=== PATIENT | female | born 1965 | race Caucasian/White ===

== ENCOUNTER 2018-03-13 06:27 | Day surgery (SDC) | payer BC ==
[2018-03-13] MEDS ORDERED: Ticagrelor* 90 MG TAB PO ONE ×2 (06:51→06:55)
[2018-03-13] MEDS ORDERED: Aspirin 81 mg CHEW TAB* 81 MG TAB.CHEW PO ONE (06:51)
[2018-03-13] MEDS ORDERED: Heparin for STEMI(*) 5,000 UNITS/ML 1 ML VIAL IV ONE ×2 (06:51→06:53)
[2018-03-13] MEDS ORDERED: Aspirin 81 mg CHEW TAB* 81 MG TAB.CHEW ONE (06:53)
[2018-03-13] MEDS ORDERED: Nitroglycerin TAB 0.4 MG* 0.4 MG TAB ONE (06:53)
[2018-03-13] MEDS ORDERED: Morphine VIAL* 4 MG/ML VIAL (1 ml vial) IV ONE (06:55)
[2018-03-13] MEDS ORDERED: VERAPAMIL 2.5 MG/ML 2 ML VIAL ** 5 mg/2 ml ONE (07:05)
[2018-03-13] MEDS ORDERED: Heparin 2 UNITS/ML IVPREMIX* 3,000 ML IV ONE (07:05)
[2018-03-13] MEDS ORDERED: Lidocaine 1% INJ* 10 MG/ML 30 ML SDV ONE (07:05)
[2018-03-13] MEDS ORDERED: Heparin(*) 1000 UNIT/ML 10 ML VIAL CATH LAB IV ONE (07:05)
[2018-03-13] MEDS ORDERED: nitroGLYCERIN DRIP* 0 MCG/0 ML BTL ONE (07:05)
[2018-03-13] MEDS ORDERED: nitroGLYCERIN DRIP* 25,000 MCG/250 ML BTL ONE ×2 (07:10→07:16)
[2018-03-13] MEDS ORDERED: Iohexol 350 (CONTRAST) 200 ML MDV IV ONE ×2 (07:10→07:16)
[2018-03-13 07:14] LABS: Hematocrit 40 % (35-47); Mean Corpuscular HGB Conc 35 g/dl (31-36); Mean Corpuscular Hemoglobin 30 pg (27-31); Mean Corpuscular Volume 88 fL (80-97); Mean Platelet Volume 7.7 um3 (7.4-10.4); Platelet Count 417 10^3/ul (150-450); Red Blood Count 4.61 10^6/ul (4.00-5.40); Red Cell Distribution Width 13 % (10.5-15); White Blood Count 8.6 10^3/ul (3.5-10.8)
[2018-03-13 07:15] LABS: INR 0.79 (0.77-1.02)
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
[2018-03-13 07:24] LABS: EGFR Non-African American 85.4 (>60)
[2018-03-13] MEDS ORDERED: Heparin DRIP 25,000 UNITS(*) 25,000 UNITS/500 ML BAG ONE (07:35)
[2018-03-13 07:39] LABS: ABS Basophils 0.1 10^3/ul (0-0.2); ABS Eosinophils 0.3 10^3/ul (0-0.6); ABS Lymphocytes 1.9 10^3/ul (1.0-4.8); ABS Monocytes 0.6 10^3/ul (0-0.8); ABS Neutrophils 5.5 10^3/ul (1.5-7.7); ABS Nucleated RBC 0 10^3/ul; Lymphocyte % 23.2 % (25-47); Nucleated Red Blood Cells % 0
[2018-03-13] MEDS ORDERED: Heparin 2 UNITS/ML IVPREMIX* 1,000 ML IV ONE (08:08)
[2018-03-13] MEDS ORDERED: Metoprolol Tartrate IV* 1 MG/ML 5 ML VIAL ONE ×2 (08:14→09:10)
[2018-03-13] MEDS ORDERED: Insulin REGULAR(*) 1 UNITS UNIT IV PUSH ONE (08:39)
[2018-03-13] MEDS ORDERED: Insulin GLARGINE(*) 1 UNITS UNIT SUBCUT ONE (08:42)
--- NOTE | 2018-03-13 09:00 | PN ---
Hospitalist Progress Note Date of Service: 03/13/18 . Hospitalist Consult. Asked for dosing guidance for insulin in setting of hyperglycemia (530) amidst a STEMI. s/p cath with occlusions not amenable to PCI intervention (as per Dr. Tracy) Plan is to transfer to [facility] for cardiac surgery (bypass). In terms of the focal issue of her hyperglycemia -- I understand she does not routinely take insulin agents; she is a known non-compliant diabetic. For acute management during transfer: 1. Regular insulin 10 units IV once, now (STAT) 2. Concurrently, 15 units Lantus SQ once, now (STAT) 3. Recheck FS Q1 hour --> recommend consideration for insulin drip for perioperative management when she arrives to [facility]. 4. I will add on A1C; I don't have a sense of her typical/baseline glucose level. I will remain available until she departs for [place]...
[2018-03-13 13:10] VITALS: BP 0/0
--- NOTE | 2018-03-13 16:06 | CONS ---
CC: Rolando Garcia MD; Dr. Carl Adhikari MD, [facility], [facility] * EMERGENCY ROOM CONSULTATION REPORT/TRANSFER SUMMARY: DATE OF CONSULT: 03/13/18 REASON FOR CONSULT: The patient with acute ST segment elevation, inferior wall myocardial infarction. HISTORY OF PRESENT ILLNESS: The patient is a 52-year-old female who has a history of significant risk factors for underlying coronary artery disease including insulin-requiring diabetes, obesity, hyperlipidemia, possible hypertension, prior history of smoking, although she stopped within the past 2 years, but no significant family history. The patient was in her usual state of health and at 4:00 in the morning developed the onset of significant chest discomfort that radiated to her left shoulder, also to her back, also to her left arm. It was associated with mild shortness of breath. No profound diaphoresis or nausea or vomiting. She sat on this for several hours and eventually decided it was not getting better, if anything getting worse and presented to the emergency room by having been driven in by her at 6:27 a.m. EKG was performed. A STEMI alert was called. I got beeped on my beeper at 7 a.m. for the STEMI alert. When I saw her, she was still having chest discomfort, although she stated it was slightly better. She had gotten 4000 units of heparin, full dose aspirin and 180 mg of Brilinta by the emergency room physician. Because of the ongoing symptoms, clearly I explained the risks and benefits of proceeding to the cardiovascular laboratory and recommended that we go immediately there. She understood them and agreed with this. PAST MEDICAL HISTORY: Include insulin-dependent diabetes mellitus under Dr. Rolando Garcia's control, chronic depression, history of hypercholesterolemia, morbid obesity, tobacco dependence although she states she quit within the past year to a year and a half, sleep apnea. PAST SURGICAL HISTORY: Status post tonsillectomy. REVIEW OF SYSTEMS: Pertinent to proceeding to the cardiovascular laboratory included no history of hematochezia, hematemesis, or hematuria. No history of stroke or TIA. No history of renal insufficiency or contrast allergy that she was aware about. PHYSICAL EXAM: When I saw her in the emergency room revealed Vital Signs: Blood pressure was 178/104, pulse 100, respirations 22, and O2 saturation 94% on room air. Neck was supple without increased JVP. Carotid had fair upstroke and volume. It was difficult to assess for bruits, but no obvious one was present with the noise in the emergency room. Chest was clear to A and P. Heart revealed no visible heaves, no palpable heaves or thrills. Regular rate and rhythm with borderline tachycardic was noted without significant murmur. Abdomen was obese, soft, nontender. Extremities without significant edema. Peripheral pulses are intact. Femoral pulse present without bruit. Neuro: The patient is alert, oriented with normal mentation. Musculoskeletal: The patient moves all extremities appropriate. Psychologic: The patient was appropriately anxious. DIAGNOSTIC STUDIES/LAB DATA: EKG revealed ST segment elevation 2 through aVF, reciprocal changes in aVL and V2. There was mild ST segment elevation in V5 and V6. Labs were pending initially. IMPRESSION: Acute ST segment elevation inferior wall myocardial infarction. Risks and benefits were explained to her. She understood them. Her heard them as well and wished to proceed to the cardiovascular laboratory. Cardiovascular laboratory revealed severe triple vessel disease involving the LAD with critical lesions in the mid and mid to distal area as well as moderate disease proximally and critical disease in the circumflex mid lesion with 2 obtuse marginal branches. Collateral blood flow was seen from the left system through septal perforators and distal circumflex to the right coronary artery. The right coronary artery had multiple critical stenosis in its proximal segment with competitive flow. Attempts were then made to try to open the right coronary artery; however, the wire could not be selectively directed down the right coronary artery past the second blockage. The first blockage was traversed but it kept going into an acute marginal branch. Reassessing the vessel with the wire removed revealed flow down to the right coronary artery with competitive flow and at that point, the patient's chest discomfort completely abated. EKG was repeated and found to have marked improvement of the ST segments. Given these findings, the decision was made to place the patient on a heparin drip. The IV nitroglycerin drip was increased and metoprolol IV was administered. The patient was to be transported to [facility] to the cardiothoracic intensive care unit to Dr. Carl Adhikari's service. I personally spoke with Dr. Carl Adhikari about the case. We had sent the films up via our internet connection to him and a disc was made to go with the patient. At the time of transport, the patient was stable with no chest discomfort on the intravenous drips. The patient had received additional metoprolol IV therapy as well. Laboratory results that came up after the patient was already brought up to the cardiovascular laboratory: White count 8600, hemoglobin and hematocrit of 14 and 40 with a platelet count of 417,000. INR was 0.79. The initial sodium was 131, potassium was hemolyzed, chloride 97, bicarb 23, BUN and creatinine of 28 and 0.72, glucose was 530. SGOT was hemolyzed. SGPT was 19. The total CPK was 62. The MB of 2.0. Troponin 0.01 and B-natriuretic peptide was 18. LDL was 181. [id number]/[facility] #: [id number] [facility]
--- NOTE | 2018-03-14 00:57 | CONS ---
EMERGENCY ROOM CONSULTATION/TRANSFER NOTE: CANCELLED DICTATION PER DR. ALLISON DATE OF CONSULT: 03/13/18 HISTORY OF PRESENT ILLNESS: The patient is a pleasant 52-year-old white female , who I am asked to see for acute ST segment elevation inferior wall myocardial infarction. The patient is a 52-year-old female without a prior history of coronary artery disease specifically denying any history of myocardial infarction, congestive heart failure, or significant heart rhythm disturbance. She had the onset of severe chest discomfort at 4 a.m. which waxed and waned, eventually continued to get more severe and came to the emergency room by car at 6:27. [id number]/[facility] #: [id number] MTDNancy
--- NOTE | 2018-03-14 11:26 | CATH ---
CC: Rolando Garcia MD; Dr. Carl Adhikari [facility] [place] [facility] * CARDIAC CATHETERIZATION: DATE OF PROCEDURE: 03/13/18 - [facility] CATH INDICATION FOR THE PROCEDURE: Patient with ST segment elevation inferior wall myocardial infarction. PROCEDURE: Coronary arteriography, left heart catheterization, left ventriculography. The patient was interviewed and examined in the emergency room where the risks and benefits were explained. She understood them and wished to proceed. PRECATHETERIZATION LABORATORY RESULTS: BUN and creatinine of 28 and 0.7. Hemoglobin and hematocrit of 14 and 40 with a platelet count of 417,000. INR 0.9. Sodium 137. MEDICATIONS GIVEN: The patient had already received aspirin and clopidogrel 180 mg in the emergency room in addition to 4000 units of heparin given by the emergency room physician. In the stucco laborer, she received 2000 units more of heparin and heparin drip was continued. A nitroglycerin drip was administered and intravenous Lopressor 5 mg was given. EQUIPMENT UTILIZED: 1. Right femoral sheath was a 6.5-English Merit Prelude sheath. 2. The diagnostic coronary catheters included a 5-English FL4 curve left coronary catheter and for the right coronary artery a 6-English ART 3.5 guide catheter with side holes. Interventional wire was an All Star 300 length wire and a BMW wire and a Whisper exchange length wire. PROCEDURE IN DETAIL: The patient was brought to the cardiovascular laboratory where a formal time- out was performed. She was prepped and draped in sterile fashion. The right groin area was anesthetized with 1% lidocaine. The right femoral artery was cannulated and a sheath was placed. Coronary arteriography was performed utilizing the left diagnostic catheter and the right guide catheter. Decision was made to attempt to intervene into the subtotally occluded right coronary artery. The patient received additional heparin therapy for an ACT that was in borderline range. Multiple guidewires were attempted to cross the second subtotally occluded area in the proximal right coronary artery and were unsuccessful. Of note, the patient had improvement of symptoms, a mild improvement of flow. Her ST segments improved better and repeat EKG demonstrated improvement with virtual resolution of her chest discomfort. The decision made at that point given the severity of the multiple lesions in the right coronary artery and the presence of severe coronary artery disease in her other vessels and relatively well- preserved LV function to suture the sheath in place and transport her to [facility] for opinion for bypass surgery. Dr. Tarun Adhikari was consulted by phone and graciously accepted the transfer. The total contrast used was 125 cc of Omnipaque dye. The radiation exposure included 14.7 minutes of fluoro time. The air kerma radiation was 1446 mGy. The DAP radiation was 9681 microgray per meter square. RESULTS: HEMODYNAMIC DATA: LEFT HEART CATHETERIZATION: Central aortic pressure recorded at 178/100 with a mean of 128, left ventricular pressure 175 over left ventricular end diastolic pressure of 14. Of note, filling was noted on the tracings and the average was taken. LEFT VENTRICULOGRAPHY: Performed in the IBANEZ projection revealed significant borderline hyperdynamic left ventricular systolic with ejection fraction of at least 65%. There was [id number] mid inferior wall hypokinesis. There was no significant mitral regurgitation. CORONARY ARTERIOGRAPHY: A. Left coronary artery: 1. Left main. There were mild luminal irregularities in the left main. 2. Left anterior descending artery. The left anterior descending artery traversed to the apical region supplying a high first diagonal branch and several mid and distal diagonal branches. Most of the calibers appeared to be extremely small in caliber. The mid portion of the left anterior descending artery just after the first septal medical accounting clerk had a 65% to 70% obstruction. Past this point, in the mid segment was another area of 60%. In the mid-to- distal area was a stenosis of 90%, followed by 95%, followed by a diffusely small caliber distal vessel traversing to the apical region on to the inferior wall with a diffuse area of stenosis of 75% to 80%. 3. Circumflex artery - nondominant vessel supplying a thread-like first obtuse marginal branch and small caliber second and third obtuse marginal branch followed by 2 last low lying obtuse marginal branches. The fourth bifurcated into a superior and inferior branch. There was diffuse disease seen throughout the circumflex with a 35% to 40% proximal area, 55% to 60% mid area. Between the third and fourth obtuse marginal branch there was an 80% lesion in the circumflex artery, the fourth obtuse marginal branch was diffusely diseased with proximal stenosis of at least 45% to 50% in the distal and past that in the proximal portion of the fifth obtuse marginal branch was a significant 75% to 80% obstruction. Collateral blood flow was seen from the left coronary artery to the right coronary artery through distal circumflex as well as the septal perforators of the LAD. B. Right coronary artery - a dominant vessel supplying the PDA. There is competitive flow within the PDA and the posterior left ventricular branch. There was subtotal occlusion of this vessel with critical 95% proximal and mid lesions noted. A diffusely diseased long thin acute marginal branch was noted as well. The distal vessel after it turned on to the inferior surface of the heart appeared to have a significant 80% stenosis in it. In general, all of the vessels appeared to be small in caliber and diffusely diseased consistent with severe diabetic coronary atherosclerosis. ATTEMPTED INTERVENTION TO SUBTOTALLY OCCLUDED RIGHT CORONARY ARTERY: - unsuccessful attempt to deliver guidewire past the mid portion of the right coronary arteries, second critical 95% obstruction despite multiple wire attempts. OVERALL ASSESSMENT: Severe diffusely diabetic-appearing atherosclerosis with competitive flow to the right coronary artery as described above. Virtual resolution of symptoms and improvement of EKG changes were noted. The patient is being transferred up to [facility] to obtain a surgical opinion as to the feasibility of attempting open heart surgery. Other considerations would be for repeat attempt at intervention, perhaps with balloon supported advancement of guidewire throughout the right coronary artery. In general, overall prognosis is quite grim in nature given the severity of the coronary artery disease. Aggressive risk factor management clearly is in need given the uncontrolled diabetes (presentation blood sugar in the 500s) as well as uncontrolled hyperlipidemia (HDL 160) as well as obesity and hypertension. Further management will be made under the guidance of Dr. Tarun Adhikari and the cardiovascular team up at [facility]. [id number]/[facility] #: [id number] [facility]
== END 2018-03-13 07:14 | disposition home or self-care (01) ==
LOC: ED 06:27 → CHICATH 07:14
PROVIDERS: ATTEND Internal Medicine Cardiovascular Disease
DX: I21.19 ST elevation (STEMI) myocardial infarction involving other coronary artery of inferior wall (principal); E11.9 Type 2 diabetes mellitus without complications; Z88.5 Allergy status to narcotic agent; J45.909 Unspecified asthma, uncomplicated; K21.9 Gastro-esophageal reflux disease without esophagitis; F32.9 Major depressive disorder, single episode, unspecified; Z87.891 Personal history of nicotine dependence
CPT/HCPCS: 36415; 80051; 80053; 82550; 82553; 83721; 83874; 83880; 84484; 85025; 85610; 85730; 86850; 86900; 86901; 93005; 99285; A9270-GY; C1769; C1887; J1644; J2270; J3490

== ENCOUNTER 2019-01-23 19:10 | Emergency (ER) | payer OTHER ==
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
[2019-01-23 19:28] VITALS: BP 115/78
--- NOTE | 2019-01-24 08:36 | UC ---
- Progress Note Progress Note: Radiologist reading of left shoulder x-ray from January 23, 2019 is read as no fracture. Provider interpretation from same date is also no fracture therefore there is no discrepancy. Course/Dx - Diagnoses Provider Diagnoses: Shoulder strain Discharge - Sign-Out/Discharge Documenting (check all that apply): Patient Departure All imaging exams completed and their final reports reviewed: Yes - Discharge Plan Condition: Stable Disposition: HOME Patient Education Materials: Rotator Cuff Injury (ED), Early Postoperative or Post Injury Shoulder Exercises (ED) Referrals: Rolando Garcia MD [Primary Care Provider] - Stephon Silva MD [Medical Doctor] - If Needed Additional Instructions: If you develop a fever, shortness of breath, chest pain, new or worsening symptoms - please call your PCP or go to the ED immediately. 1) Rest, Ice, and elevate your shoulder intermittently throughout the day 2) Use the sling for comfort, but try not to use this as it is best to keep your shoulder gently moving. ----Practice pendulum exercises as demonstrated in the clinic 3) If your shoulder does not improve within 5-7 days, please call Orthopedics at the number below to schedule an appointment for a recheck. - Billing Disposition and Condition Condition: STABLE Disposition: Home
== END 2019-01-23 20:03 | disposition home or self-care (01) ==
LOC: UCEAST 19:10
DX: S46.912A Strain of unspecified muscle, fascia and tendon at shoulder and upper arm level, left arm, initial encounter (principal); W18.30XA Fall on same level, unspecified, initial encounter; Y93.51 Activity, roller skating (inline) and skateboarding; Y92.9 Unspecified place or not applicable; E11.9 Type 2 diabetes mellitus without complications; I11.9 Hypertensive heart disease without heart failure; I25.2 Old myocardial infarction; F41.9 Anxiety disorder, unspecified; Z88.5 Allergy status to narcotic agent; Z87.891 Personal history of nicotine dependence
CPT/HCPCS: 99211; G0463